=== PATIENT | male | born 1965 | race Caucasian/White ===

== ENCOUNTER 2018-08-17 16:07 | Inpatient (IN) | payer MEDICAID ==
[~2018-08-17] VITALS: Ht 172.7 cm; Wt 116.6 kg
[2018-08-17 16:23] VITALS: BP 146/70
[2018-08-17] MEDS ORDERED: LACTULOSE 20 GM/30 ML UDC PO ONE (19:50)
[2018-08-17 20:31] LABS: BASOPHILS % (AUTO) 0.8 % (0.0-2.0); EOSINOPHILS # (AUTO) 0.2 K/uL (0-0.4); HEMATOCRIT 29.3 % (36-52); HEMOGLOBIN 9.2 g/dL (12.0-18.0); LYMPHOCYTES # (AUTO) 1.1 K/uL (2.0-11.5); LYMPHOCYTES % (AUTO) 31.6 % (20.5-51.1); MEAN CORPUSCULAR HEMOGLOBIN 23 pg (27-31); MEAN CORPUSCULAR HGB CONC 31 g/dL (33-37); MEAN CORPUSCULAR VOLUME 72.1 fL (80-94); MONOCYTES # (AUTO) 0.3 K/uL (0.8-1.0); MONOCYTES % (AUTO) 9.5 % (1.7-9.3); NEUTROPHILS # (AUTO) 1.8 K/uL (1.8-7.7); NEUTROPHILS % (AUTO) 51.1 % (42.2-75.2); PLATELET COUNT (AUTO) 102 K/uL (140-450); RED BLOOD CELL COUNT(AUTO) 4.07 MIL/uL (4.20-6.10); RED CELL DISTRIBUTION WIDTH 18.1 % (11.6-13.7); WHITE BLOOD COUNT (AUTO) 3.4 K/uL (4.8-10.8)
[2018-08-17 20:48] LABS: ALBUMIN 2.8 g/dL (3.4-5.0); ANION GAP 8.4 (8-16); CARBON DIOXIDE 29.2 mmol/L (21-32); CREATININE 0.8 mg/dL (0.7-1.3); POTASSIUM 3.6 mmol/L (3.5-5.1); TOTAL BILIRUBIN 0.9 mg/dL (0.0-1.0)
[2018-08-17 20:49] LABS: APPEARANCE,URINE CLEAR (CLEAR); BILIRUBIN,URINE NEGATIVE (NEGATIVE); BLOOD, URINE 2+ (NEGATIVE); COLOR,URINE YELLOW (YELLOW); LEUKOCYTE ESTERASE ,URINE NEGATIVE (NEGATIVE); NITRITE, URINE NEGATIVE (NEGATIVE); RBC,URINE 3-10 (FEW) /HPF (0-5); UGLUCOSE NEGATIVE (NEGATIVE); WBC,URINE NONE SEEN /HPF (0-5)
[2018-08-17] MEDS ORDERED: ONDANSETRON 4 MG/2 ML VIAL IM/IVP PRN (21:35)
[2018-08-17] MEDS ORDERED: ACETAMINOPHEN 325 MG TAB PO PRN (21:35)
[2018-08-17] MEDS ORDERED: DOCUSATE SODIUM 100 MG GELCAP PO PRN (21:35)
[2018-08-17] MEDS ORDERED: HYDROcodone/APAP 7.5/325 MG 1 TAB PO PRN (21:35)
[2018-08-17 22:00] LABS: BARBITURATE, URINE NEG. ng/ml (NEG <=200); BENZODIAZEPINE, URINE POS. ng/mL (NEG <=200); CANNABINOID, URINE NEG. ng/mL (NEG <=50); COCAINE, URINE NEG. ng/mL (NEG <=300); OPIATE, URINE POS. ng/mL (NEG <=2000); PHENCYCLIDINE SCREEN,URINE NEG. ng/mL (NEG <=25)
[2018-08-17] MEDS ORDERED: SPIRONOLACTONE 25 MG TAB PO SCH (22:00)
[2018-08-17] MEDS ORDERED: FUROSEMIDE 100 MG/10 ML VIAL IV SCH (22:00)
[2018-08-17] MEDS ORDERED: FUROSEMIDE 20 MG/2 ML VIAL IVP SCH (22:01)
[2018-08-17 22:11] LABS: CHOL/HDL RATIO 3.5 (1-4.5); MAGNESIUM 1.8 mg/dL (1.8-2.4); PHOSPHORUS 3.5 mg/dL (2.5-4.9); THYROID STIMULATING HORMONE 2.02 uIU/mL (0.34-3.74)
[2018-08-17] MEDS: NACL 0.9% 1,000 ML IV SCH (22:24)
[2018-08-18] VITALS: BP 155/69
[2018-08-18 04:00] VITALS: BP 140/71
[2018-08-18 07:56] LABS: BASOPHILS % (AUTO) 0.7 % (0.0-2.0); EOSINOPHILS # (AUTO) 0.3 K/uL (0-0.4); EOSINOPHILS % (AUTO) 6.8 % (0.0-4.0); HEMATOCRIT 28.8 % (36-52); LYMPHOCYTES # (AUTO) 1.1 K/uL (2.0-11.5); LYMPHOCYTES % (AUTO) 25.9 % (20.5-51.1); MEAN CORPUSCULAR HEMOGLOBIN 23 pg (27-31); MEAN CORPUSCULAR HGB CONC 31 g/dL (33-37); MEAN CORPUSCULAR VOLUME 72.8 fL (80-94); MONOCYTES # (AUTO) 0.7 K/uL (0.8-1.0); MONOCYTES % (AUTO) 16.6 % (1.7-9.3); NEUTROPHILS # (AUTO) 2.2 K/uL (1.8-7.7); PLATELET COUNT (AUTO) 92 K/uL (140-450); RED BLOOD CELL COUNT(AUTO) 3.96 MIL/uL (4.20-6.10); RED CELL DISTRIBUTION WIDTH 18.2 % (11.6-13.7); WHITE BLOOD COUNT (AUTO) 4.3 K/uL (4.8-10.8)
[2018-08-18 08:00] VITALS: BP 144/78
[2018-08-18 08:22] LABS: ANION GAP 12.8 (8-16); CREATININE 0.7 mg/dL (0.7-1.3); POTASSIUM 3.8 mmol/L (3.5-5.1)
[2018-08-18] MEDS: LISINOPRIL 10 MG TAB PO SCH (08:34)
[2018-08-18] MEDS ORDERED: METHADONE 10 MG TAB PO SCH ×2 (09:00→10:01)
[2018-08-18] MEDS ORDERED: SPIRONOLACTONE 25 MG TAB PO SCH ×2 (09:00)
[2018-08-18] MEDS ORDERED: FUROSEMIDE 20 MG/2 ML VIAL IVP SCH ×2 (09:00→09:38)
[2018-08-18] MEDS ORDERED: DOL10 PO (09:15)
[2018-08-18 09:33] LABS: MAGNESIUM 1.8 mg/dL (1.8-2.4)
[2018-08-18] MEDS ORDERED: LACTULOSE 20 GM/30 ML UDC PO SCH ×2 (09:38→13:00)
[2018-08-18 12:03] VITALS: BP 119/62
[2018-08-18] MEDS ORDERED: SODIUM FERRIC GLUCONATE 125 MG in NACL 0.9% 100 ML IV SCH (13:00)
[2018-08-18 16:00] VITALS: BP 144/79
[2018-08-18 20:00] VITALS: BP 151/73
[2018-08-18] MEDS: LACTULOSE 20 GM/30 ML UDC PO SCH (20:36)
[2018-08-18] MEDS: NEOMYCIN 500 MG TAB PO SCH (20:36)
[2018-08-18] MEDS: NACL 0.9% 1,000 ML IV SCH (20:39)
[2018-08-18] MEDS: KETOROLAC 30 MG/ML VIAL IVP PRN (20:53)
[2018-08-19] VITALS: BP 120/58
[2018-08-19 04:00] VITALS: BP 116/61
[2018-08-19 06:10] LABS: HEPATITIS A ANTIBODY IGM Negative (Negative); HEPATITIS B CORE AB TOTAL Negative (Negative); HEPATITIS B SURFACE ANTIBODY Non Reactive (.); HEPATITIS B SURFACE ANTIGEN Negative (Negative)
[2018-08-19] MEDS: KETOROLAC 30 MG/ML VIAL IVP PRN (07:06)
[2018-08-19 07:50] LABS: BASOPHILS % (AUTO) 0.7 % (0.0-2.0); EOSINOPHILS # (AUTO) 0.2 K/uL (0-0.4); EOSINOPHILS % (AUTO) 5.9 % (0.0-4.0); HEMATOCRIT 27.6 % (36-52); HEMOGLOBIN 8.6 g/dL (12.0-18.0); LYMPHOCYTES # (AUTO) 0.8 K/uL (2.0-11.5); LYMPHOCYTES % (AUTO) 21.6 % (20.5-51.1); MEAN CORPUSCULAR HEMOGLOBIN 22 pg (27-31); MEAN CORPUSCULAR HGB CONC 31 g/dL (33-37); MEAN CORPUSCULAR VOLUME 72.1 fL (80-94); MONOCYTES # (AUTO) 0.2 K/uL (0.8-1.0); MONOCYTES % (AUTO) 6.8 % (1.7-9.3); NEUTROPHILS # (AUTO) 2.3 K/uL (1.8-7.7); PLATELET COUNT (AUTO) 103 K/uL (140-450); RED BLOOD CELL COUNT(AUTO) 3.83 MIL/uL (4.20-6.10); RED CELL DISTRIBUTION WIDTH 18.3 % (11.6-13.7); WHITE BLOOD COUNT (AUTO) 3.6 K/uL (4.8-10.8)
[2018-08-19 08:00] VITALS: BP 150/63
[2018-08-19 08:11] LABS: ANION GAP 12.8 (8-16); CREATININE 0.8 mg/dL (0.7-1.3); POTASSIUM 3.8 mmol/L (3.5-5.1)
[2018-08-19 08:18] LABS: T4 (THYROXINE) 7.7 ug/dL (4.5-12.0)
[2018-08-19 08:20] LABS: MAGNESIUM 1.7 mg/dL (1.8-2.4)
[2018-08-19 09:09] LABS: FOLIC ACID > 20.00 ng/mL (>3.0)
[2018-08-19] MEDS: LISINOPRIL 10 MG TAB PO SCH (09:17)
[2018-08-19] MEDS: ASCORBIC ACID 500 MG TAB PO SCH (09:17)
[2018-08-19] MEDS: FERROUS SULFATE 325 MG TABEC PO SCH (09:17)
[2018-08-19] MEDS: LACTULOSE 20 GM/30 ML UDC PO SCH ×2 (09:18→20:55)
[2018-08-19] MEDS: SPIRONOLACTONE 25 MG TAB PO SCH (09:18)
[2018-08-19] MEDS: NEOMYCIN 500 MG TAB PO SCH (09:18)
[2018-08-19] MEDS: FUROSEMIDE 20 MG/2 ML VIAL IVP SCH (09:19)
[2018-08-19] MEDS: METHADONE 10 MG TAB PO SCH (09:19)
[2018-08-19] MEDS ORDERED: RIFAXIMIN 550 MG TAB PO SCH (10:00)
[2018-08-19] MEDS ORDERED: SIMETHICONE 80 MG TAB.CHEW PO PRN (10:10)
[2018-08-19] MEDS ORDERED: SIMETHICONE 80 MG TAB.CHEW PO SCH (10:15)
[2018-08-19 17:00] VITALS: BP 153/67
[2018-08-19] MEDS: RIFAXIMIN 550 MG TAB PO SCH (20:55)
[2018-08-19] MEDS ORDERED: MORPHINE SULFATE 4 MG/ML SYR IVP SCH (21:15)
[2018-08-19] MEDS: NACL 0.9% 1,000 ML IV SCH (22:00)
[2018-08-20] VITALS: BP 148/61
[2018-08-20] MEDS ORDERED: MORPHINE SULFATE 4 MG/ML SYR IVP PRN (06:25)
[2018-08-20 07:08] LABS: BASOPHILS % (AUTO) 0.8 % (0.0-2.0); EOSINOPHILS # (AUTO) 0.3 K/uL (0-0.4); EOSINOPHILS % (AUTO) 8.1 % (0.0-4.0); HEMATOCRIT 29.3 % (36-52); HEMOGLOBIN 9.3 g/dL (12.0-18.0); LYMPHOCYTES # (AUTO) 1.1 K/uL (2.0-11.5); LYMPHOCYTES % (AUTO) 27.4 % (20.5-51.1); MEAN CORPUSCULAR HEMOGLOBIN 23 pg (27-31); MEAN CORPUSCULAR HGB CONC 32 g/dL (33-37); MEAN CORPUSCULAR VOLUME 71.9 fL (80-94); MONOCYTES # (AUTO) 0.2 K/uL (0.8-1.0); MONOCYTES % (AUTO) 5.6 % (1.7-9.3); NEUTROPHILS # (AUTO) 2.4 K/uL (1.8-7.7); NEUTROPHILS % (AUTO) 58.1 % (42.2-75.2); PLATELET COUNT (AUTO) 108 K/uL (140-450); RED BLOOD CELL COUNT(AUTO) 4.07 MIL/uL (4.20-6.10); RED CELL DISTRIBUTION WIDTH 18.3 % (11.6-13.7); WHITE BLOOD COUNT (AUTO) 4.1 K/uL (4.8-10.8)
[2018-08-20 07:14] LABS: ANION GAP 12.5 (8-16); CARBON DIOXIDE 27.5 mmol/L (21-32); CREATININE 0.9 mg/dL (0.7-1.3)
[2018-08-20 08:00] VITALS: BP 160/71
[2018-08-20] MEDS: SPIRONOLACTONE 25 MG TAB PO SCH (09:00)
[2018-08-20] MEDS: FUROSEMIDE 20 MG/2 ML VIAL IVP SCH (09:00)
[2018-08-20] MEDS: LACTULOSE 20 GM/30 ML UDC PO SCH (09:00)
[2018-08-20] MEDS: RIFAXIMIN 550 MG TAB PO SCH (09:15)
[2018-08-20] MEDS: ASCORBIC ACID 500 MG TAB PO SCH (09:17)
[2018-08-20] MEDS: METHADONE 10 MG TAB PO SCH (09:17)
[2018-08-20] MEDS: LISINOPRIL 10 MG TAB PO SCH (09:18)
[2018-08-20] MEDS: FERROUS SULFATE 325 MG TABEC PO SCH (09:18)
[2018-08-20] MEDS ORDERED: RIFA550T PO (09:52)
[2018-08-20] MEDS ORDERED: AMOX-999 PO (09:52)
[2018-08-20] MEDS ORDERED: LACT10CA1 PO (10:30)
[2018-08-20] MEDS ORDERED: VITC500 PO (10:33)
[2018-08-20] MEDS ORDERED: LACT10SO11 PO (10:33)
[2018-08-20] MEDS ORDERED: FER325 PO (10:33)
[2018-08-20] MEDS ORDERED: LAS20I PO (10:33)
[2018-08-20] MEDS ORDERED: SPIR25TA PO (10:33)
[2018-08-21 07:55] LABS: FERRITIN 29 ng/mL (30 - 400)
[2018-08-26 12:44] LABS: TRANSFERRIN 385 mg/dL (200-370)
== END 2018-08-20 11:35 | disposition home or self-care (01) | DRG 279 ==
LOC: MED 16:07 → MTU 21:36
PROVIDERS: ADMIT General Practice; ATTEND General Practice
DX: K72.90 Hepatic failure, unspecified without coma (principal); E43 Unspecified severe protein-calorie malnutrition; D61.818 Other pancytopenia; J18.1 Lobar pneumonia, unspecified organism; J90 Pleural effusion, not elsewhere classified; K70.31 Alcoholic cirrhosis of liver with ascites; E66.01 Morbid (severe) obesity due to excess calories; E86.0 Dehydration; R16.1 Splenomegaly, not elsewhere classified; B19.20 Unspecified viral hepatitis C without hepatic coma; I10 Essential (primary) hypertension; F11.90 Opioid use, unspecified, uncomplicated; K42.9 Umbilical hernia without obstruction or gangrene; M47.9 Spondylosis, unspecified; Z68.39 Body mass index [BMI] 39.0-39.9, adult; Z59.0 Homelessness; Z98.84 Bariatric surgery status
CPT/HCPCS: 36415; 71045; 76700; 80048; 80053; 80305; 81001; 82140; 82272; 82607; 82728; 82746; 83036; 83540; 83605; 83690; 83735; 83880; 84100; 84436; 84443; 84479; 85025; 85045; 85610; 85730; 86704; 86706; 86708; 86709; 86803; 87081; 87340; 93005; 99285; G0482; J1885; J1940; J2270; J2916; J7030; Q0092